=== PATIENT | female | born 1945 | race Native Hawaiian/Other Pacific Islander ===

== ENCOUNTER 2017-09-25 09:22 | Outpatient (CLI) | payer OTHER ==
[2017-09-25 10:29] LABS: PLATELET COUNT 311 K/uL (152-353)
== END 2017-09-25 18:17 | disposition home or self-care (01) ==
LOC: LAB 09:22
PROVIDERS: Physician Assistant
DX: M81.0 Age-related osteoporosis without current pathological fracture (principal); Z79.899 Other long term (current) drug therapy; Z51.81 Encounter for therapeutic drug level monitoring
CPT/HCPCS: 80053; 80061; 82306; 84439; 84443; 85027

== ENCOUNTER 2017-10-11 11:19 | Outpatient (CLI) | payer OTHER | END 2017-10-11 22:56 | disposition home or self-care (01) | LOC: MAMMO 11:19 | DX: Z12.31 Encounter for screening mammogram for malignant neoplasm of breast (principal) ==

== ENCOUNTER 2018-04-26 11:49 | Outpatient (CLI) | payer OTHER, MEDICARE | END 2018-04-26 19:35 | disposition home or self-care (01) | LOC: RESP 11:49 | DX: I49.8 Other specified cardiac arrhythmias (principal); I49.3 Ventricular premature depolarization | CPT/HCPCS: 93005 ==

== ENCOUNTER 2018-05-07 09:58 | Outpatient (CLI) | payer OTHER, MEDICARE | END 2018-05-07 22:41 | disposition home or self-care (01) | LOC: RESP 09:58 | DX: I49.8 Other specified cardiac arrhythmias (principal); Z79.899 Other long term (current) drug therapy | CPT/HCPCS: 93306 ==

== ENCOUNTER 2018-09-02 08:18 | Day surgery (SDC) | payer OTHER, MEDICARE | END 2018-09-02 09:24 | disposition home or self-care (01) | LOC: OR 08:18 | DX: Z53.8 Procedure and treatment not carried out for other reasons (principal) ==

== ENCOUNTER 2018-11-26 07:25 | Outpatient (CLI) | payer OTHER, MEDICARE ==
[2018-11-26 07:51] LABS: PLATELET COUNT 283 K/uL (152-353)
[2018-11-26 08:37] LABS: POTASSIUM 4.2 mmol/L (3.6-5.2)
== END 2018-11-26 19:28 | disposition home or self-care (01) ==
LOC: LABW 07:25
PROVIDERS: Internal Medicine
DX: E78.00 Pure hypercholesterolemia, unspecified (principal); E55.9 Vitamin D deficiency, unspecified; M19.90 Unspecified osteoarthritis, unspecified site
CPT/HCPCS: 36415; 80053; 80061; 81000; 82306; 84439; 84443; 85027

== ENCOUNTER 2018-12-26 11:03 | Outpatient (CLI) | payer OTHER, MEDICARE | END 2018-12-26 23:49 | disposition home or self-care (01) | LOC: RAD 11:03 | DX: J18.9 Pneumonia, unspecified organism (principal) ==

== ENCOUNTER 2020-04-07 14:17 | Outpatient (CLI) | payer OTHER, MEDICARE ==
[2020-04-07 14:44] LABS: PLATELET COUNT 267 K/uL (152-353)
[2020-04-07 15:00] LABS: POTASSIUM 4.3 mmol/L (3.6-5.2)
== END 2020-04-07 20:18 | disposition home or self-care (01) ==
LOC: LAB 14:17
PROVIDERS: Internal Medicine
DX: Z00.00 Encounter for general adult medical examination without abnormal findings (principal); E78.00 Pure hypercholesterolemia, unspecified; E55.9 Vitamin D deficiency, unspecified; Z13.820 Encounter for screening for osteoporosis
CPT/HCPCS: 80053; 80061; 81000; 82306; 84439; 84443; 85027

== ENCOUNTER 2021-01-06 13:01 | Outpatient (CLI) | payer OTHER, MEDICARE ==
[2021-01-21 09:42] LABS: POTASSIUM 4.9 mmol/L (3.6-5.2)
[2021-01-21 09:48] LABS: PLATELET COUNT 273 K/uL (152-353)
== END 2021-01-06 22:57 | disposition home or self-care (01) ==
LOC: RESP 13:01
PROVIDERS: ATTEND Physician Assistant
DX: E78.00 Pure hypercholesterolemia, unspecified (principal); J45.909 Unspecified asthma, uncomplicated; I49.8 Other specified cardiac arrhythmias; Z79.899 Other long term (current) drug therapy
CPT/HCPCS: 36415; 80053; 80061; 82306; 83036; 84439; 84443; 85027; 93225

== ENCOUNTER 2021-01-21 10:33 | Outpatient (CLI) | payer OTHER, MEDICARE | END 2021-01-21 23:00 | disposition home or self-care (01) | LOC: LABW 10:33 | PROVIDERS: ATTEND Physician Assistant | DX: E78.00 Pure hypercholesterolemia, unspecified (principal); J45.909 Unspecified asthma, uncomplicated; I49.9 Cardiac arrhythmia, unspecified; Z79.899 Other long term (current) drug therapy | CPT/HCPCS: 36415; 84443 ==

== ENCOUNTER 2021-09-28 15:13 | Outpatient (CLI) | payer OTHER, MEDICARE ==
[2021-09-28 15:45] LABS: PLATELET COUNT 273 K/uL (152-353)
[2021-09-28 16:11] LABS: POTASSIUM 4.5 mmol/L (3.6-5.2)
== END 2021-09-28 19:41 | disposition home or self-care (01) ==
LOC: LAB 15:13
PROVIDERS: ATTEND Internal Medicine
DX: E78.2 Mixed hyperlipidemia (principal); J45.909 Unspecified asthma, uncomplicated; E55.9 Vitamin D deficiency, unspecified; Z79.899 Other long term (current) drug therapy
CPT/HCPCS: 80053; 80061; 82306; 83036; 84439; 84443; 85027

== ENCOUNTER 2021-11-14 14:24 | Emergency (ER) | payer OTHER, MEDICARE ==
[~2021-11-14] VITALS: Ht 170.2 cm; Wt 83.9 kg
[2021-11-14 15:30] LABS: PLATELET COUNT 278 K/uL (152-353)
[2021-11-14 15:56] LABS: POTASSIUM 3.8 mmol/L (3.6-5.2)
[2021-11-14] MEDS ORDERED: CEFD300C2 PO (16:14)
[2021-11-14] MEDS ORDERED: ONDA4TAB3 PO (16:18)
[2021-11-14 17:00] VITALS: BP 148/64; TEMP 98
== END 2021-11-14 17:00 | disposition home or self-care (01) ==
LOC: ED 14:24
PROVIDERS: Emergency Medicine Emergency Medical Services
DX: J32.0 Chronic maxillary sinusitis (principal); R42 Dizziness and giddiness
CPT/HCPCS: 36415; 80053; 81000; 83735; 84484; 85027; 93005; 96360; 96365; 99284; J0696

== ENCOUNTER 2022-01-27 11:11 | Outpatient (CLI) | payer OTHER, MEDICARE ==
[~2022-01-27 11:11] MED LIST: CEFD300C2 PO; ONDA4TAB3 PO
== END 2022-01-27 20:00 | disposition home or self-care (01) ==
LOC: LAB 11:11
PROVIDERS: ATTEND Internal Medicine
DX: Z01.818 Encounter for other preprocedural examination (principal)
CPT/HCPCS: 87635; G2023; U0003

== ENCOUNTER 2022-03-17 13:16 | Outpatient (CLI) | payer OTHER, MEDICARE | END 2022-03-17 21:05 | disposition home or self-care (01) | LOC: MAMMO 13:16 | PROVIDERS: ATTEND Internal Medicine | DX: Z12.31 Encounter for screening mammogram for malignant neoplasm of breast (principal); Z13.820 Encounter for screening for osteoporosis; N95.8 Other specified menopausal and perimenopausal disorders ==

== ENCOUNTER 2022-09-07 07:36 | Outpatient (CLI) | payer OTHER, MEDICARE ==
[2022-09-07 07:51] LABS: PLATELET COUNT 291 K/uL (152-353)
[2022-09-07 09:12] LABS: POTASSIUM 4.2 mmol/L (3.6-5.2)
== END 2022-09-07 21:21 | disposition home or self-care (01) ==
LOC: LABW 07:36
PROVIDERS: ATTEND Internal Medicine Cardiovascular Disease
DX: Z79.899 Other long term (current) drug therapy (principal)
CPT/HCPCS: 36415; 80053; 80061; 85027

== ENCOUNTER 2022-09-20 13:00 | Outpatient (CLI) | payer OTHER, MEDICARE | END 2022-09-20 19:16 | disposition home or self-care (01) | LOC: RESP 13:00 | PROVIDERS: ATTEND Internal Medicine Cardiovascular Disease | DX: R03.0 Elevated blood-pressure reading, without diagnosis of hypertension (principal); Z79.899 Other long term (current) drug therapy ==